=== PATIENT | female | born 1950 | race Caucasian/White ===

== ENCOUNTER 2021-07-03 09:20 | Day surgery (SDC) | payer MEDICARE, OTHER ==
[~2021-07-03] VITALS: Ht 163 cm; Wt 105.0 kg
[~2021-07-03 09:20] MED LIST: ACETAMINOPHEN500 M1 PO; AMLODIPINE BESY10 MG PO; ATARAX25 MG PO; ATORVASTATIN CA40 MG PO; CARBAMAZEPINE400 MG PO; DULOXETINE HCL30 MG PO; EXCEDRIN MIGRA1 EACH PO; MELOXICAM15 MG PO
--- NOTE | 2021-07-03 15:31 | NUR ---
PT HAD A RDATHR THIS DATE. [facility] TO DELIVER A RW. PT. REQUESTED [facility] OUTPT. FIRST APPT. IS WED. 07/05/21 @ 8:00 A.N.
[2021-07-04 05:51] LABS: BASOPHIL 0.3 % (0-2); EOSINOPHIL 0.3 % (0-7); HCT 27.7 % (37.0-47.0); HGB 8.8 g/dl (12.5-16.0); LYMPHOCYTE 26.9 % (15-48); MCH 26.6 pg (25.0-31.0); MCHC 31.8 g/dL (32.0-36.0); MCV 83.7 fL (78.0-100.0); MONOCYTE 6.8 % (0-12); MPV 8.7 fL (6.0-9.5); NEUTROPHIL 65.4 % (41-80); NRBC 0; PLT 214 K/uL (150-400); RBC 3.31 M/uL (4.20-5.40); RDW 15.1 % (11.5-14.0); WBC 6.8 K/uL (4.0-10.5)
[2021-07-04 06:18] LABS: ALBUMIN 2.6 g/dL (3.4-5.0); BILIRUBIN - TOTAL 0.3 mg/dL (0.2-1.0); BUN/CREAT RATIO (CALC) 16.2 RATIO; CREATININE 0.8 mg/dL (0.51-0.95); GLOBULIN (CALCULATION) 2.7 g/dL; POTASSIUM 4.2 mmol/L (3.5-5.1); TOTAL PROTEIN 5.3 g/dL (6.4-8.2)
[2021-07-04] MEDS ORDERED: OXYCODONE-ACET1 EAC1 PO (09:26)
[2021-07-04] MEDS ORDERED: FEOSOL325 MG PO (09:26)
[2021-07-04] MEDS ORDERED: XARELTO10 MG PO (09:26)
== END 2021-07-04 11:00 | disposition home or self-care (01) ==
LOC: FAS 09:20 → FOR 11:30 → FOFB 13:09 → FAS 07-04 11:00
PROVIDERS: Legal Medicine
DX: M16.0 Bilateral primary osteoarthritis of hip (principal); I10 Essential (primary) hypertension; E78.5 Hyperlipidemia, unspecified; J44.9 Chronic obstructive pulmonary disease, unspecified; F41.9 Anxiety disorder, unspecified; F32.A Depression, unspecified; Z79.899 Other long term (current) drug therapy; Z90.49 Acquired absence of other specified parts of digestive tract; Z79.891 Long term (current) use of opiate analgesic; Z79.82 Long term (current) use of aspirin; Z90.710 Acquired absence of both cervix and uterus
CPT/HCPCS: 36415; 73501; 80053; 85025; 86850; 86900; 86901; 94010; 97162; 97166; 97530-GP; 97535; C1713; C1776; J0171; J0697; J1100; J1170; J1885; J2001; J2250; J2270; J2370; J2405; J2704; J2795; J3010; J7120